=== PATIENT | male | born 1945 | race Caucasian/White ===

== ENCOUNTER 2018-03-30 19:18 | Emergency (ER) | payer OTHER ==
--- NOTE | 2018-03-30 19:54 | EDPHY ---
H & P Stated Complaint: RLQ x 2 weeks, midsternal chest pain x 2 days radiating to back. Time Seen by Provider: 03/30/18 19:43 HPI/ROS: CHIEF COMPLAINT: Abdominal pain and chest pain HISTORY OF PRESENT ILLNESS: The patient is a 73-year-old man who denies significant past medical history. He comes to the emergency department complaining of right lower quadrant pain for about 2 weeks and states that he is concerned about appendicitis. He is slightly nauseous but has not vomited. He states that he had diarrhea few days ago but had a normal bowel movement yesterday. No fevers. He also states that about 2 days ago he developed some sternal chest pain that is sharp and radiates to his shoulder blades. He states that it hurts when he coughs. He states that he does have some pain at rest as well. He denies shortness of breath. No sore throat, runny nose or upper respiratory symptoms. No recent trauma. No recent surgery. Denies urinary symptoms. No leg pain or swelling. Severity: Moderate Modifying factors: None REVIEW OF SYSTEMS: Constitutional: denies: chills, fever, recent illness, recent injury EENTM: denies: blurred vision, double vision, nose congestion Respiratory: denies: cough, shortness of breath Cardiac: denies: chest pain, irregular heart rate, lightheadedness, palpitations Gastrointestinal/Abdominal: See HPI Genitourinary: denies: dysuria, frequency, hematuria, pain Musculoskeletal: denies: joint pain, muscle pain Skin: denies: lesions, rash, jaundice, bruising Neurological: denies: headache, numbness, paresthesia, tingling, dizziness, weakness Hematologic/Lymphatic: denies: blood clots, easy bleeding, easy bruising Immunologic/allergic: denies: HIV/AIDS, transplant 10 systems reviewed and negative except as noted EXAM: GENERAL: Well-appearing, well-nourished and in no acute distress. HEAD: Atraumatic, normocephalic. EYES: Pupils equal round and reactive to light, extraocular movements intact, sclera anicteric, conjunctiva are normal. ENT: TMs normal, nares patent, oropharynx clear without exudates. Moist mucous membranes. NECK: Normal range of motion, supple without lymphadenopathy or JVD. LUNGS: Breath sounds clear to auscultation bilaterally and equal. No wheezes rales or rhonchi. HEART: Regular rate and rhythm without murmurs, rubs or gallops. ABDOMEN: Mild bilateral lower quadrant pain and slight tenderness, no guarding or rebound. No distention. BACK: No CVA tenderness, no spinal tenderness, step-offs or deformities EXTREMITIES: Normal range of motion, no pitting or edema. No clubbing or cyanosis. NEUROLOGICAL: Cranial nerves II through XII grossly intact. Normal speech, normal gait. 5/5 strength, normal movement in all extremities, normal sensation , normal reflexes PSYCH: Normal mood, normal affect. SKIN: Warm, dry, normal turgor, no visible rashes or lesions. Source: Patient - Personal History Current Tetanus Diphtheria and Acellular Pertussis (TDAP): Unsure - Medical/Surgical History Hx Asthma: No Hx Chronic Respiratory Disease: No Hx Diabetes: No Hx Cardiac Disease: No Hx Renal Disease: No Hx Cirrhosis: No Hx Alcoholism: No Hx HIV/AIDS: No Hx Splenectomy or Spleen Trauma: No Other PMH: hernia, bronchitis - Family History Significant Family History: No pertinent family hx - Social History Smoking Status: Never smoked Alcohol Use: Sober Drug Use: None Constitutional: Initial Vital Signs Temperature (C) 36.7 C 03/30/18 19:40 Heart Rate 63 03/30/18 19:40 Respiratory Rate 19 03/30/18 19:40 Blood Pressure 151/98 H 03/30/18 19:40 O2 Sat (%) 92 03/30/18 19:40 O2 Delivery Mode Room Air Allergies/Adverse Reactions: No Known Allergies Allergy (Verified 03/31/18 09:51) Home Medications: Medication Instructions Recorded NK [No Known Home Meds] 03/30/18 Medical Decision Making - Diagnostics EKG Interpretation: An EKG obtained and was read and documented in trace view. Please see trace view for full reading and report. Sinus rhythm, slight ST depression in lead V3 in V4. A repeat EKG obtained and was read and documented in trace view. Please see trace view for full reading and report. Sinus rhythm, unchanged from previous Imaging: Discussed imaging studies w/ call center representative Radiologist ED Course/Re-evaluation: Patient's D-dimer is significantly elevated. Will add CT angio of his chest to the previous ordered ordered CT abdomen. 9:35 p.m. we discussed the patient's lab and imaging results which are all very reassuring. I suspect that he has a mild bronchitis. He does have a nonproductive cough. We discussed treatment for this. We also discussed follow up for his small nodules. His troponin is negative in the setting of greater than 24 hr worth of symptoms. This is reassuring. We engaged in shared decision making. He declines further workup or testing at this time and follow up with his primary doctor. His symptoms do not sound typical for coronary disease. 9:50 p.m. the patient is asking for a note because he has a court date tomorrow. I encouraged him to go to the court date and not miss his appointment. 10:00 p.m. the patient continues to lobby for note that he will not have to go to court tomorrow. I am beginning to grow suspicious of an ulterior motive for his visit. Differential Diagnosis: Partial list of the Differential diagnosis considered include but were not limited to; constipation, appendicitis, bronchitis, pneumonia and although unlikely based on the history and physical exam, I also considered PE, acute coronary disease. I discussed these differential diagnoses and the plan with the patient as well as the usual and expected course. The patient understands that the diagnosis is provisional and that in medicine we are not always correct and that further workup is often warranted. Usual and customary warnings were given. All of the patient's questions were answered. The patient was instructed to return to the emergency department should the symptoms at all worsen or return, otherwise to followup with the physician as we discussed. - Data Points Point of Care Test Results: CBC CBC Collection Date 03/30/18 CBC Collection Time 19:45 WBC 5.8 RBC 4.73 HGB 15.2 HCT 43.8 PLT 187 Neut # 3.4 Neut 58.1 LYMPH # 1.3 LYMPH 23 Other WBC # 1.1 Other WBC 18.9 MCV 92.6 Chemistry 03/30/18 03/30/18 19:55 19:53 POC Sodium 139 mEq/L mEq/L (135-145) POC Potassium 3.8 mEq/L mEq/L (3.3-5.0) POC Chloride 111.0 mEq/L H mEq/L (97-110) POC Total CO2 23 mEq/L mEq/L (22-31) POC BUN 12 mg/dL mg/dL (7-23) POC Creatinine 1.0 mg/dL mg/dL (0.7-1.3) POC Glucose 93 mg/dL mg/dL (70-100) POC Calcium 9.2 mg/dL mg/dL (8.5-10.4) POC Total Bilirubin 0.7 mg/dL mg/dL (0.1-1.4) POC AST 38 IU/L IU/L (17-59) POC ALT 33 IU/L IU/L (21-72) POC Alk Phosphatase 73 IU/L IU/L (38-126) POC Troponin I 0.01 ng/mL ng/mL (0.00-0.08) POC Total Protein 6.4 g/dL g/dL (6.3-8.2) POC Albumin 3.4 g/dL L g/dL (3.5-5.0) D-Dimer D-Dimer Collection Date 03/30/18 D-Dimer Collection Time 19:45 D-Dimer (ng/ml) 618 Urine Dip Collection Date 03/30/18 Collection Time 21:33 Specific [place] (1.002-1.030) 1.015 PH (5.0-7.5) 6.5 Protein (Negative) Negative Glucose (Negative) Negative Ketones (Negative) Negative Urobilnogen (0.2-1.0 EU) 0.2 Bilirubin (Negative) Negative Blood (Negative) Negative Departure - Departure Disposition: Home, Routine, Self-Care Clinical Impression: Bronchitis Constipation Qualifiers: Constipation type: unspecified constipation type Qualified Code(s): K59.00 - Constipation, unspecified Condition: Good Instructions: Constipation (DC), Acute Bronchitis (ED) Additional Instructions: Take MiraLax as discussed for constipation. May take 1 to her 3 capsules per day as needed. Also follow up with your doctor for repeat CT scan in 3 months of your chest to make sure year lung nodules resolve Referrals: Vanna Lai MD [Medical Doctor] - 2-3 days, if not improved NONE *PRIMARY CARE P,. [Primary Care Provider] - As per Instructions Stand Alone Forms: Statement of Treatment
--- NOTE | 2018-03-30 19:56 | CPEKG ---
Test Reason : OPEN Blood Pressure : / mmHG Vent. Rate : 064 BPM Atrial Rate : 064 BPM P-R Int : 144 ms QRS Dur : 085 ms QT Int : 387 ms P-R-T Axes : 051 -01 -37 degrees QTc Int : 400 ms Sinus rhythm Inferior infarct, age [id number] Confirmed by Ceferino Castillo ([id number]) on 03/30/2018 7:56:34 PM Referred By: Confirmed By:Ceferino Castillo
--- NOTE | 2018-03-30 20:22 | CPEKG ---
Test Reason : OPEN Blood Pressure : / mmHG Vent. Rate : 060 BPM Atrial Rate : 060 BPM P-R Int : 146 ms QRS Dur : 083 ms QT Int : 519 ms P-R-T Axes : 040 -04 011 degrees QTc Int : 519 ms Sinus rhythm Prolonged QT interval Confirmed by Ceferino Castillo ([id number]) on 03/30/2018 8:21:15 PM Referred By: Confirmed By:Ceferino Castillo
[2018-03-30] MEDS ORDERED: IOPAMIDOL (ISOVUE-370) 150 ML BTL IV ONE (20:25)
[2018-03-30 21:55] VITALS: BP 132/88
== END 2018-03-30 21:55 | disposition home or self-care (01) ==
LOC: CED 19:18
DX: K59.00 Constipation, unspecified (principal)
CPT/HCPCS: 71046-PO; 71275-PO; 74177-PO; 80053-ER; 84484-ER; Q9967

== ENCOUNTER 2018-03-31 09:46 | Emergency (ER) | payer OTHER ==
--- NOTE | 2018-03-31 12:36 | EDPHY ---
General Time Seen by Provider: 03/31/18 11:15 Narrative: CLINICAL IMPRESSION: Increased stress, insomnia ASSESSMENT/PLAN: Patient is a 73-year-old male who denies any significant medical history who presents to the emergency department today complaining of increased stress, insomnia and requesting a note to excuse him from court. Patient is afebrile and nontoxic-appearing, he is in no acute distress. Physical examination is unremarkable; mild frequent cough observed consistent with recent bronchitis diagnosis. Visit reviewed from yesterday, very reassuring workup; no acute findings of chest, abdomen or pelvis CT, grossly normal metabolic panel. His vital signs were reviewed and no findings to suggest bacterial illness. I did not repeat laboratory studies today. Patient does not have suicidal or homicidal ideation, he is not gravely disabled and does not qualify for M1 hold. There were no clinical findings to suggest acute infectious process, jania, intoxication, organic etiology, metabolic abnormality or other toxidrome. The patient was formally evaluated by behavioral health in the emergency department, no concern for acute psychiatric emergency. Their recommendation was for patient to follow up with their primary care provider as well as establish care with counseling on an outpatient basis. On repeat exam the patient is well appearing, still requesting to be excused from court secondary to being tired. He does not feel that he is an imminent danger to self or others. Although he had a falling out with his PCP he understands the importance of close follow-up and will call to schedule an appointment for repeat examination. In reviewing his emergency department record from yesterday , it is noted that the provider was suspicious of alterior motive for his visit at that time- consistent with today's exam. Return precautions discussed- he will return for fever, chest pain, shortness of breath, persistent insomnia, increased or uncontrolled behaviors or for any other concerning symptom. Patient verbalizes understanding and is in agreement with plan. DIFFERENTIAL DX: Infectious process, medication noncompliance, medication side effect, depression and illicit drug use. CHIEF COMPLAINT: Increased stress, insomnia HPI: Patient is a 73-year-old male who presents to the emergency department complaining of increased stress and insomnia. Patient immediately discloses that he is supposed to be in court today for a"high profile case"however feels too tired to go. Patient was seen and evaluated at [facility] yesterday with an extensive workup to include chest CT and abdominal CT, overall reassuring workup and diagnosed with a bronchitis. 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 Patient was due to be in court today for a high profile government case however was feeling very anxious, felt like he was going to be arrested and felt like he was going to get "whacked". He feels too tired to go and is requesting an excuse so as not to be there. Patient reports progressive issues with insomnia over the last several weeks, worse in the last several days. He still reports that he is getting several hours of continuous sleep. Stress as mentioned above. He does have a primary care provider however states "they had a falling out". Patient is currently not taking any medications for sleep. He denies any delusions, hallucinations, hearing voices, suicidal ideation or homicidal ideation. He is most concerned about his lack of sleep and it affecting his daily living. PMH: Hernia, bronchitis Family History: Noncontributory Social History: Never smoked, denies alcohol and denies illicit drug use. REVIEW OF SYSTEMS: All other systems negative Constitutional: No fever, no chills, appetite change. Eyes: No discharge, vision change ENT: No sore throat, congestion, ear pain. Cardiovascular: No chest pain, no palpitations. Respiratory: Cough. No no shortness of breath. Gastrointestinal: No abdominal pain, no vomiting, diarrhea. Genitourinary: No hematuria, dysuria, flank pain, pelvic pain Musculoskeletal: No back pain, joint swelling, joint pain, myalgias. Skin: No rashes, color change. Neurological: No headache, dizziness, weakness. PHYSICAL EXAM: General Appearance: Patient is a well-appearing male in no acute distress and not toxic-appearing. HENT: Normocephalic, atraumatic. Bilateral external ears are normal. Nares are clear, mucosa is pink. Oropharynx is clear, uvula is midline. There is no tonsillar enlargement or exudate. The dentition is normal. Eyes: PERRLA, no acute vision change, nystagmus, swelling, discharge, pain or photosensitivity. Conjunctiva pink, no pallor or injection Neck: Supple, nontender, no lymphadenopathy, no midline pain, FROM, no meningismus. Respiratory: There are no retractions, lungs are clear to auscultation. Cardiac: Regular rate and rhythm, no murmurs or gallops. Gastrointestinal: Abdomen is soft, nontender, bowel sounds normal, no masses/ hernia, no rigidity, guarding or focal peritoneal findings. Neurological: Alert and oriented x 3, CN 2-12 grossly intact, normal gait no ataxia, DTR's intact, normal sensation and strength Skin: Warm, dry, no rashes, no nodules on palpation. Musculoskeletal: Extremities are symmetrical, full range of motion, no tenderness, deformity, swelling, or erythema. Psychiatric: Patient is oriented X 3, intensely reading stacks of paper however easily distractible with normal affect. Does not appear anxious or depressed. MEDICAL DECISION MAKING: Patient was seen independently. Secondary supervising physician at time of evaluation was Dr. Gaytan, she did not personally evaluate this patient. Diagnosis: Anxiety, insomnia. New, requires workup Summary: See Assessment and Plan for summary of ED visit Clinical lab tests: None ordered, reviewed from yesterday. Independent visualization of images, tracing, or specimens: Reviewed from yesterday. Decision to obtain medical records or history from someone other than the patient: No. Review / Summarize previous medical records: Yes. Discussed patient with another provider: Yes, Dr. Gaytan. Patient Progress: Stable, discharged. - Objective Vital Signs: Initial Vital Signs Temperature (C) 36.4 C 03/31/18 09:52 Heart Rate 69 03/31/18 09:52 Respiratory Rate 18 03/31/18 09:52 Blood Pressure 124/83 H 03/31/18 09:52 O2 Sat (%) 94 03/31/18 09:52 O2 Delivery Mode Room Air Allergies/Adverse Reactions: No Known Allergies Allergy (Verified 03/31/18 09:51) Home Medications: Medication Instructions Recorded NK [No Known Home Meds] 03/30/18 Departure - Departure Disposition: Home, Routine, Self-Care Clinical Impression: Anxiety, Insomnia Condition: Good Instructions: Insomnia (ED), Anxiety (ED) Additional Instructions: DISCHARGE INSTRUCTIONS FROM YOUR DOCTOR Thank you for visiting our emergency department today. Please keep in mind that discharge from the emergency department does not mean that there is nothing wrong - it simply means that we have not identified an emergency condition that requires further evaluation or treatment in the hospital. You must follow up with your primary care provider, please call today and schedule appointment for follow-up. Please look at the resources that you were provided yesterday in regards to ongoing behavioral health consultation and call to schedule an appointment. Rest, healthy/regular sleep schedule, push fluids, healthy diet, regular exercise. Attempt to reduce stress. Pursue pleasurable, healthy activities. Surround yourself with loving, supportive, healthy friends and family. Avoid drugs and alcohol. Re-establish counseling to help work through issues and develop good coping and behavioral strategies for stress reduction and symptom control. Establish care with a primary care physician. [facility] has walk-in appointments, no appointment is needed. Return for increased or unmanageable anxiety, severe depression, thoughts or plans to hurt yourself or someone else, for chest pain, shortness of breath, dizziness, fainting, rapid or irregular heart beat, sweating, vomiting, abdominal pain, back pain, tremor, seizure, mental status changes, or for any other new, worsening or worrisome symptoms. People present with illnesses and injuries in different ways, and it is always possible that we have missed something. You may always return for re-evaluation if symptoms worsen or if they are not improving or if you develop new/different symptoms. Again, thank you for choosing our emergency department. We hope that you feel better. Referrals: NONE *PRIMARY CARE P,. [Primary Care Provider] - As per Instructions Winston Vega, DO [Medical Doctor] - As per Instructions (Referral should you need another primary care provider) Stand Alone Forms: Statement of Treatment
[2018-03-31 13:36] VITALS: BP 133/69
== END 2018-03-31 13:33 | disposition home or self-care (01) ==
LOC: EEVIPCON 09:46
DX: F41.9 Anxiety disorder, unspecified (principal); G47.00 Insomnia, unspecified